=== PATIENT | male | born 1945 | race Caucasian/White ===

== ENCOUNTER → 2017-05-30 | Outpatient (CLI) | payer BC ==
[~2017-05-30] MED LIST: AMLO5 PO; CHOL10002 PO; CODACE30 PO; DOCU100 PO; Ecotrin325 MG PO; GABA300 PO; GABA600 PO; HYDSUL200 PO; Hydroxychloroq200 MG PO; IBUP800 PO; METO25ER PO; METO50ER PO; MUPI2TC TOP; OXYC10TA19 PO; OXYC5 PO; SULF500A PO; TAMS.4ER PO; TRIHYD253A PO; TYLENOL WITH CODEINE PO; Triamterene W/1 EACH PO; VALS80 PO; WARF4 PO
== END ==
LOC: LAB 11:21
DX: R97.20 Elevated prostate specific antigen [PSA] (principal)
CPT/HCPCS: 87070; 87077; 87186

== ENCOUNTER → 2017-06-27 | Outpatient (CLI) | payer BC | END | disposition home or self-care (01) | LOC: PLD 07:36 | DX: C61 Malignant neoplasm of prostate (principal) | CPT/HCPCS: 88305; 88341; 88342 ==

== ENCOUNTER 2017-11-09 14:30 | Inpatient (IN) | payer MEDICARE, BC ==
[~2017-11-09] VITALS: Ht 177.8 cm; Wt 112.9 kg
[~2017-11-09 14:30] MED LIST changes: -Ecotrin325 MG PO; -OXYC5 PO
[2017-11-15 04:31] LABS: BASOPHILS ABSOLUTE AUTO 0.04 K/mm3 (0.00-0.23); BASOPHILS PERCENT AUTO 0 % (0-2); EOSINOPHILS PERCENT AUTO 2 % (0-6); Hematocrit 32.6 % (37.0-53.0); Hemoglobin 10.7 g/dL (13.5-17.5); IMMATURE GRAN ABSOLUTE AUTO 0.05 K/mm3 (0.00-0.10); IMMATURE GRAN PERCENT AUTO 0 % (0-1); LYMPHOCYTES ABSOLUTE AUTO 1.63 K/mm3 (0.84-5.20); LYMPHOCYTES PERCENT AUTO 14 % (21-46); MONOCYTES ABSOLUTE AUTO 1.26 K/mm3 (0.16-1.47); MONOCYTES PERCENT AUTO 11 % (4-13); Mean Corpuscular HGB 30.6 pg (26.0-34.0); Mean Corpuscular HGB Conc 32.8 g/dL (31.5-36.5); Mean Corpuscular Volume 93 fL (80-100); Mean Platelet Volume 10.8 fL (9.1-12.4); NEUTROPHILS ABSOLUTE AUTO 8.34 K/mm3 (1.96-9.15); NEUTROPHILS PERCENT AUTO 73 % (41-73); Platelet Count 254 K/mm3 (150-400); RDW Coefficient Variation 13.4 % (11.7-14.2); White Blood Cell Count 11.52 K/mm3 (4.00-11.30)
[2017-11-15 04:58] LABS: Anion Gap 8 mmol/L (6-16); Blood Urea Nitrogen 14 mg/dL (8-24); Bun/Creatinine Ratio 16.6 (12.0-20.0); CO2, Blood 29 mmol/L (21-32); Calcium, Blood 8.6 mg/dL (8.5-10.1); Chloride, Blood 104 mmol/L (98-108); Creatinine, Blood 0.84 mg/dL (0.60-1.20); Glomerular Filtration Rate >60 (60-); Glucose, Blood 131 mg/dL (70-99); Potassium, Blood 3.4 mmol/L (3.5-5.5); Sodium, Blood 141 mmol/L (136-145)
[2017-11-15] MEDS ORDERED: OXYC5 PO (13:37)
[2017-11-15] MEDS ORDERED: Ecotrin325 MG PO (13:39)
== END 2017-11-15 15:45 | disposition home or self-care (01) | DRG 470 ==
LOC: SURS 11-14 12:03 → PRE IP 11-14 13:30 → SURS 11-14 18:38
PROVIDERS: Orthopaedic Surgery
PROC: 0SRB0JA Replacement of Left Hip Joint with Synthetic Substitute, Uncemented, Open Approach (ICD-10-PCS; principal; 2017-11-14 13:30)
DX: M16.12 Unilateral primary osteoarthritis, left hip (principal); I10 Essential (primary) hypertension; E78.5 Hyperlipidemia, unspecified; M06.9 Rheumatoid arthritis, unspecified; Z79.899 Other long term (current) drug therapy; Z98.1 Arthrodesis status; Z85.038 Personal history of other malignant neoplasm of large intestine; Z90.49 Acquired absence of other specified parts of digestive tract; Z87.891 Personal history of nicotine dependence; Z88.5 Allergy status to narcotic agent
CPT/HCPCS: 36415; 72170; 80048; 82947; 85025; 86850; 86900; 86901; 87081; 88300; 97110; 97116; 97161; 97530; C1713; C1776; G8978; G8979; J0171; J0690; J0735; J1885; J2250; J2370; J2795; J3010; J7120

== ENCOUNTER 2019-01-14 07:49 | Day surgery (SDC) | payer BC ==
[~2019-01-14] VITALS: Ht 180.3 cm; Wt 107.9 kg
[~2019-01-14 07:49] MED LIST changes: +Ecotrin325 MG PO; +OXYC5 PO
[2019-01-14 08:52] LABS: IMMATURE RETIC FRACTION 8.3 % (2.3-16.0); RETIC HGB EQUIVALENT 36.3 pg (28.20-36.60); RETICULOCYTE ABSOLUTE 0.0572 M/mm3 (0.0200-0.1100); RETICULOCYTE COUNT PERCENT 1.41 % (0.50-2.50)
[2019-01-14 09:12] LABS: Percent Saturation 28.3 % (20.0-50.0)
[2019-01-14 09:15] LABS: Free Thyroxine 0.92 ng/dL (0.70-1.60)
== END 2019-01-14 09:59 | disposition home or self-care (01) ==
LOC: ORSCSDS 07:49
PROVIDERS: Internal Medicine Gastroenterology
PROC: 0DBP8ZX Excision of Rectum, Via Natural or Artificial Opening Endoscopic, Diagnostic (ICD-10-PCS; principal; 2019-01-14 09:00)
PROC: 0DBE8ZX Excision of Large Intestine, Via Natural or Artificial Opening Endoscopic, Diagnostic (ICD-10-PCS; principal; 2019-01-14 09:00)
DX: Z12.11 Encounter for screening for malignant neoplasm of colon (principal); Z85.038 Personal history of other malignant neoplasm of large intestine; D12.8 Benign neoplasm of rectum; K57.30 Diverticulosis of large intestine without perforation or abscess without bleeding; I10 Essential (primary) hypertension; E78.5 Hyperlipidemia, unspecified; Z79.899 Other long term (current) drug therapy
CPT/HCPCS: 82607; 82728; 82746; 83516; 83540; 83550; 84439; 85045; 86255; 88305; J2704; J7120

== ENCOUNTER → 2020-04-10 | Outpatient (CLI) | payer BC ==
[2020-04-10 15:20] LABS: Microalbumin, Urine Quant. 14.4 mg/L (0.000-20.000); Protein, Urine Quantitative 12.4 mg/dL (0.0-11.9)
== END | disposition home or self-care (01) ==
LOC: LAB SHORT 05:00 → LAB 05:00 → LAB FUT 04-08 10:50
PROVIDERS: Internal Medicine Nephrology
DX: N18.30 Chronic kidney disease, stage 3 unspecified (principal); D63.1 Anemia in chronic kidney disease; N25.81 Secondary hyperparathyroidism of renal origin; E55.9 Vitamin D deficiency, unspecified; E78.00 Pure hypercholesterolemia, unspecified; R76.9 Abnormal immunological finding in serum, unspecified; R94.5 Abnormal results of liver function studies; R94.6 Abnormal results of thyroid function studies
CPT/HCPCS: 81050; 82043; 82570; 84156

== ENCOUNTER 2021-05-03 04:26 | Day surgery (SDC) | payer BC ==
[~2021-05-03] VITALS: Ht 180.3 cm; Wt 111.1 kg
[2021-05-03] MEDS ORDERED: LOSARTAN POTAS100 M1 PO (15:18)
[2021-05-03] MEDS ORDERED: Crestor40 MG PO (15:18)
[2021-05-03] MEDS ORDERED: BANOPHEN50 M1 PO (15:19)
[2021-05-03] MEDS ORDERED: THERA-D2000 UNIT PO (15:20)
[2021-05-03] MEDS ORDERED: POTASSIUM GLUCO99 M1 PO (15:20)
== END 2021-05-03 11:20 | disposition home or self-care (01) ==
LOC: ATC 04:26
DX: R97.20 Elevated prostate specific antigen [PSA] (principal); Z88.5 Allergy status to narcotic agent; Z87.891 Personal history of nicotine dependence; Z80.42 Family history of malignant neoplasm of prostate
CPT/HCPCS: 96365; J1580

== ENCOUNTER → 2021-07-22 | Outpatient (CLI) | payer BC ==
[~2021-07-22] MED LIST changes: +BANOPHEN50 M1 PO; +Crestor40 MG PO; +LOSARTAN POTAS100 M1 PO; +POTASSIUM GLUCO99 M1 PO; +THERA-D2000 UNIT PO
[2021-07-31 13:11] LABS: 6-ACETYLMORPHINE Not Detected (.)
== END | disposition home or self-care (01) ==
LOC: LAB 10:30 → LAB SHORT 10:30
PROVIDERS: Family Medicine
DX: Z51.81 Encounter for therapeutic drug level monitoring (principal); Z79.899 Other long term (current) drug therapy
CPT/HCPCS: G0480

== ENCOUNTER 2023-06-11 14:41 | Emergency (ER) | payer OTHER ==
[~2023-06-11] VITALS: Ht 182.9 cm; Wt 111.1 kg
[2023-06-11 15:28] LABS: BASOPHILS ABSOLUTE AUTO 0.09 K/mm3 (0.00-0.23); BASOPHILS PERCENT AUTO 1 % (0-2); EOSINOPHILS ABSOLUTE AUTO 0.43 K/mm3 (0.00-0.68); EOSINOPHILS PERCENT AUTO 4 % (0-6); Hematocrit 41.8 % (37.0-53.0); Hemoglobin 13.8 g/dL (13.5-17.5); IMMATURE GRAN ABSOLUTE AUTO 0.04 K/mm3 (0.00-0.10); IMMATURE GRAN PERCENT AUTO 0 % (0-1); LYMPHOCYTES ABSOLUTE AUTO 2.83 K/mm3 (0.84-5.20); LYMPHOCYTES PERCENT AUTO 28 % (21-46); MONOCYTES PERCENT AUTO 10 % (4-13); Mean Corpuscular HGB 31.2 pg (26.0-34.0); Mean Corpuscular Volume 94 fL (80-100); NEUTROPHILS ABSOLUTE AUTO 5.74 K/mm3 (1.96-9.15); NEUTROPHILS PERCENT AUTO 57 % (41-73); Platelet Count 271 K/mm3 (150-400); RDW Coefficient Variation 13.5 % (11.7-14.2); RDW Standard Deviation 46.9 fL (35.1-46.3); Red Blood Cell Count 4.43 M/mm3 (4.30-5.90); White Blood Cell Count 10.13 K/mm3 (4.00-11.30)
[2023-06-11 15:48] LABS: Albumin, Blood 3.7 g/dL (3.4-5.0); Bilirubin, Total 0.2 mg/dL (0.1-1.0); Bun/Creatinine Ratio 18.8 (12.0-20.0); Calcium, Blood 9.4 mg/dL (8.5-10.1); Creatinine, Blood 1.17 mg/dL (0.60-1.20); Globulin, Blood 3.6 g/dL (2.2-4.0); Potassium, Blood 3.8 mmol/L (3.5-5.5); Total Protein, Blood 7.3 g/dL (6.4-8.2)
[2023-06-11 17:30] VITALS: BP 190/100
[2023-06-11] MEDS ORDERED: Toprol Xl50 MG PO (17:41)
== END 2023-06-11 18:16 | disposition home or self-care (01) ==
LOC: ER 14:41
PROVIDERS: Student in an Organized Health Care Education/Training Program
DX: I10 Essential (primary) hypertension (principal); G47.00 Insomnia, unspecified; J44.9 Chronic obstructive pulmonary disease, unspecified; Z88.5 Allergy status to narcotic agent; Z79.899 Other long term (current) drug therapy; Z87.891 Personal history of nicotine dependence
CPT/HCPCS: 71046; 80053; 84484; 85025; 93005; 93010; 96374; 99284-25

== ENCOUNTER 2023-09-27 10:51 | Day surgery (SDC) | payer OTHER ==
[2023-09-27] VITALS (13 sets, daily range): BP systolic 112–164; BP diastolic 75–90
[~2023-09-27] VITALS: Ht 182.9 cm; Wt 107.9 kg
[~2023-09-27 10:51] MED LIST changes: +KLOR-CON 1010 ME9 PO; -POTASSIUM GLUCO99 M1 PO; +Toprol Xl50 MG PO
[2023-09-27] MEDS ORDERED: Acetaminophen 500 MG Tab PO SCH ×2 (10:55→16:00)
[2023-09-27] MEDS ORDERED: OxyCODONE HCL 10 MG TABCR PO SCH (10:55)
[2023-09-27] MEDS ORDERED: CeFAZolin Sodium 2,000 MG in NS 100 ML IV SCH ×2 (10:55→21:30)
[2023-09-27] MEDS ORDERED: Vancomycin HCL 1,000 MG in NS 100 ML IV SCH (10:55)
[2023-09-27] MEDS ORDERED: Lactated Ringer's 1,000 ML IV SCH ×2 (10:55→12:55)
[2023-09-27] MEDS ORDERED: Chlorhexidine Mouth Care 15 ML UDC MT SCH (10:55)
[2023-09-27] MEDS ORDERED: Ropivacaine 0.5% HCl/Pf 123.125 MG,EPINEPHrine HCL 0.25 MG,Ketorolac Tromethamine 15 MG... INFIL SCH (10:55)
[2023-09-27] MEDS ORDERED: Tranexamic Acid 100 ML IV SCH (10:59)
[2023-09-27] MEDS ORDERED: EpiNEPhrine 1 MG/1 ML 1ML Vial ONE ×2 (11:18→13:48)
[2023-09-27] MEDS ORDERED: Midazolam HCl 1MG / ML 2ML Vial ONE (11:19)
[2023-09-27] MEDS ORDERED: propofoL 20 ML IV ONE (11:19)
[2023-09-27] MEDS ORDERED: Dexamethasone Sod Phos 10 MG/ML 1ML VIAL ONE (11:19)
[2023-09-27] MEDS ORDERED: Ondansetron HCl 2 MG / ML 2ML Vial ONE (11:19)
[2023-09-27] MEDS ORDERED: Ketorolac Tromethamine 30mg Vial ONE (11:19)
[2023-09-27] MEDS ORDERED: ePHEDrine Sulfate 50 MG/ML 1ML Injection ONE ×2 (11:26→13:47)
[2023-09-27] MEDS ORDERED: ELIQUIS5 M2 PO (11:46)
--- NOTE | 2023-09-27 12:28 | NUR ---
Ambulatory in Day SurgeryPre-Op teaching done. Pt verbalizes understanding. History, Chart, Medications and Allergies reviewed before start of procedure.Patient confirms NPO status and agrees with scheduled surgery.
[2023-09-27] MEDS ORDERED: DiphenhydrAMINE HCL 25 MG Cap PO PRN (12:45)
[2023-09-27] MEDS ORDERED: Bisacodyl 10 MG Supp PR PRN (12:50)
[2023-09-27] MEDS ORDERED: OxyCODONE HCL 5 MG TAB PO PRN ×2 (12:50→12:55)
[2023-09-27] MEDS ORDERED: HYDROmorphone HCl/Pf 1MG SYR IV PRN (12:50)
[2023-09-27] MEDS ORDERED: Magnesium Hydroxide Conc 10 ML UDC PO PRN (12:55)
[2023-09-27] MEDS ORDERED: Metoclopramide HCl 5MG / ML 2ML Vial IV PRN (12:55)
[2023-09-27] MEDS ORDERED: Ondansetron HCl 2 MG / ML 2ML Vial IV PRN (12:55)
[2023-09-27] MEDS ORDERED: Promethazine HCl 25 MG Tab PO PRN (12:55)
[2023-09-27] MEDS ORDERED: Bupivacaine 0.5% HCl 5 MG/ML 30MLVIAL ONE (13:10)
[2023-09-27] MEDS ORDERED: Vancomycin HCl 1000 MG ADDvantage ONE (13:17)
[2023-09-27] MEDS ORDERED: Atropine Sulfate 0.4 MG/1 ML Vial ONE (13:58)
[2023-09-27] MEDS ORDERED: Lidocaine HCl 2% 20 ML MDV ONE (14:22)
[2023-09-27] MEDS ORDERED: Ketorolac Tromethamine 15mg Vial IV SCH (18:00)
--- NOTE | 2023-09-27 18:39 | NUR ---
SHIFT SUMMARY S/P R TKA, SURGICAL DRESSING/KARUNA CDI/SPINAL/WIGGLES TOES, TEDS/SCDS/POLAR MOE ON. A&OX4, VSS/1LNC, CROW PO, DENIES PAIN, HAS NOT BEEN OOB, AWAITING POSTOP VOID, IVF/ABX PER EMAR. WILL REPORT TO ONCOMING NOC TISHA.
[2023-09-27] MEDS ORDERED: Tamsulosin HCl 0.4 MG Cap PO SCH (21:00)
[2023-09-27] MEDS ORDERED: Gabapentin 300 MG Cap PO SCH (21:00)
[2023-09-27] MEDS ORDERED: SulfASALazine 500 MG Tab PO SCH (21:00)
[2023-09-27] MEDS ORDERED: Docusate Sodium 100 MG Cap PO SCH (21:00)
--- NOTE | 2023-09-28 00:11 | NUR ---
URINE OUTPUT PT VOIDED 25ML AT 2330. PT HAD A PREVIOUS BLADDER SCAN OF 420. PT HAS TOLD THIS RN ABOUT PREVIOUS TRAUMA WITH HAVING A CATHETER. REFUSING TO HAVE ANY KIND OF STRAIGHT CATH DONE. WILL REASSESS BLADDER T/O NIGHT
[2023-09-28] MEDS ORDERED: Vancomycin HCL 1,000 MG in NS 100 ML IV ONE (00:30)
[2023-09-28 02:29] VITALS: BP 146/73
[2023-09-28 05:35] LABS: BASOPHILS ABSOLUTE AUTO 0.01 K/mm3 (0.00-0.23); BASOPHILS PERCENT AUTO 0 % (0-2); EOSINOPHILS PERCENT AUTO 0 % (0-6); Hematocrit 35.4 % (37.0-53.0); Hemoglobin 11.8 g/dL (13.5-17.5); IMMATURE GRAN ABSOLUTE AUTO 0.11 K/mm3 (0.00-0.10); IMMATURE GRAN PERCENT AUTO 1 % (0-1); LYMPHOCYTES ABSOLUTE AUTO 1.07 K/mm3 (0.84-5.20); LYMPHOCYTES PERCENT AUTO 6 % (21-46); MONOCYTES ABSOLUTE AUTO 1.58 K/mm3 (0.16-1.47); MONOCYTES PERCENT AUTO 9 % (4-13); Mean Corpuscular HGB Conc 33.3 g/dL (31.5-36.5); Mean Corpuscular Volume 96 fL (80-100); Mean Platelet Volume 10.5 fL (9.1-12.4); NEUTROPHILS ABSOLUTE AUTO 14.88 K/mm3 (1.96-9.15); NEUTROPHILS PERCENT AUTO 84 % (41-73); Platelet Count 259 K/mm3 (150-400); RDW Coefficient Variation 13.4 % (11.7-14.2); RDW Standard Deviation 47.1 fL (35.1-46.3); Red Blood Cell Count 3.69 M/mm3 (4.30-5.90); White Blood Cell Count 17.65 K/mm3 (4.00-11.30)
[2023-09-28 06:07] LABS: Bun/Creatinine Ratio 19.4 (12.0-20.0); Calcium, Blood 9.1 mg/dL (8.5-10.1); Creatinine, Blood 1.34 mg/dL (0.60-1.20); Magnesium, Blood 1.9 mg/dL (1.6-2.4); Potassium, Blood 3.9 mmol/L (3.5-5.5)
[2023-09-28 07:03] VITALS: BP 140/65
--- NOTE | 2023-09-28 07:22 | NUR ---
SHIFT SUMMARY POD 1 R TKA PT RESTED IN BED DURING THE NIGHT. PAIN MANAGED PER EMAR. PT AMB TO THE BR, VOIDING LITTLE AMOUNTS. PT REPORTS NOT TAKING FLOMAX MEDICATION FOR A WEEK BEFORE PROCEDURE. PT TOLERATING PO INTAKE. DRESSING TO KNEE C/D/I. VSS. PLAN TO WORK WITH THERAPY THEN D/C HOME. NO OTHER CONCERNS AT THIS TIME, CALL LIGHT WITHIN REACH
[2023-09-28] MEDS ORDERED: Trimethoprim/Sulfamethoxazole DS Tab PO SCH (09:00)
[2023-09-28] MEDS ORDERED: Aspirin 81 MG Chew PO SCH (09:00)
[2023-09-28] MEDS ORDERED: Hydroxychloroquine Sulfate 200 MG Tab PO SCH (09:00)
[2023-09-28] MEDS ORDERED: Potassium Chloride 10 Meq Tablet SA PO SCH (09:00)
[2023-09-28] MEDS ORDERED: Triamter/HCthiazide 37.5/25 MG 1 Tab PO SCH (09:00)
[2023-09-28] MEDS ORDERED: Cholecalciferol 1000 Unit Tablet (=25MCG) PO SCH (09:00)
[2023-09-28] MEDS ORDERED: AmLODIPine Besylate 5 MG Tab PO SCH (09:00)
[2023-09-28] MEDS ORDERED: Rosuvastatin Calcium 10 MG Tab PO SCH (09:00)
[2023-09-28] MEDS ORDERED: Metoprolol Succinate 50 MG TABCR PO SCH (09:00)
[2023-09-28] MEDS ORDERED: Losartan Potassium 50 MG Tab PO SCH (09:00)
[2023-09-28] MEDS ORDERED: OXYC5 PO (10:23)
[2023-09-28] MEDS ORDERED: SULTRIDS PO (10:24)
[2023-09-28] MEDS ORDERED: PROM12.5S PR (10:28)
--- NOTE | 2023-09-28 12:18 | NUR ---
URINARY RETENTION PT IS CONTINUING TO HAVE URINARY RETENTION. PT IS RETAINING 350-400ML AFTER VOIDS OF 100-275ML. PT DECLINED STRAIGHT CATHETER, STATING HE PREVIOUSLY HAD A BAD EXPERIENCE. DR. JOLLY NOTIFIED. FLOMAX WAS RESTARTED LAST NIGHT. PT PROVIDED EDUCATION ABOUT URINARY RETENTION. WHILE ATTEMPTING TO PROVIDE EDUCATION PT IS AVOIDANT AND TURNS AWAY FROM STAFF. PT EXPRESSED FRUSTRATION REGARDING THE SITUATION. PT PROVIDED EDUCATION REGARDING RISKS OF URINARY RETENTION AND HIS RIGHTS THE PATIENT.
[2023-09-28 13:23] VITALS: BP 129/64
--- NOTE | 2023-09-28 14:40 | NUR ---
DC INSTRUCTIONS GIVEN TO PT AND , VERBALIZED UNDERSTANDING, IV DC'D, CATH INTACT.
--- NOTE | 2023-09-28 14:52 | NUR ---
DISCHARGE MATT GILES PROVIDED WRITTEN AND VERBAL DISCHARGE INSTRUCTIONS TO PT. PT ABLE TO VOID PRIOR TO DISCHARGE, POST VOID WAS 240ML. PT WAS PROVIDED WITH EDUCATION REGARDING URINARY RETENTION. PT ENCOURAGED TO FOLLOW-UP WITH HIS PCP WITHIN 1 WEEK. VSS. PT CLEARED THERAPY, TOLERATING PO, PAIN MANAGED. PT ASSISTED OUT IN W/C AT 1451. PER MATT GILES PT WAS PROVIDED WITH CLEAN DRESSINGS FOR DRESSING CHANGES.
[2023-09-28] MEDS ORDERED: Apixaban 5 MG Tab PO SCH (17:00)
== END 2023-09-28 14:52 | disposition home or self-care (01) ==
LOC: ORSCMMR 10:51 → ORD 14:00 → ORSCMMR 14:00 → SURS 16:45 → ORSCMMR 09-28 14:52
PROVIDERS: Orthopaedic Surgery
PROC: 0SRC0J9 Replacement of Right Knee Joint with Synthetic Substitute, Cemented, Open Approach (ICD-10-PCS; principal; 2023-09-27 14:00)
DX: M17.11 Unilateral primary osteoarthritis, right knee (principal); Z96.652 Presence of left artificial knee joint; I48.91 Unspecified atrial fibrillation; Z79.01 Long term (current) use of anticoagulants; Z85.46 Personal history of malignant neoplasm of prostate; Z79.899 Other long term (current) drug therapy; Z68.34 Body mass index [BMI] 34.0-34.9, adult; Z96.642 Presence of left artificial hip joint; Z87.891 Personal history of nicotine dependence
CPT/HCPCS: 36415; 73560-RT; 80048; 83735; 85025; 97110; 97116; 97162; A9270; C1713; C1776; J0171; J0461; J0690; J0735; J1100; J1885; J2250; J2405; J2704; J2795; J3370; J7120

== ENCOUNTER 2024-09-09 06:11 | Day surgery (SDC) | payer OTHER ==
[~2024-09-09] VITALS: Ht 182.9 cm; Wt 107.5 kg
[~2024-09-09 06:11] MED LIST changes: +Acetaminophen 500 MG Tab ONE; +ELIQUIS5 M2 PO; +Lactated Ringer's 1,000 ML IV ONE; +OxyCODONE HCL 10 MG TABCR ONE; +PROM12.5S PR; +SULTRIDS PO
[2024-09-09] MEDS ORDERED: Vancomycin HCL 1,000 MG in NS 250 ML IV SCH (06:35)
[2024-09-09] MEDS ORDERED: CefTRIAXone Sodium 2,000 MG in NS 100 ML IV SCH (06:35)
[2024-09-09] MEDS ORDERED: CODACE30 (06:42)
[2024-09-09] MEDS ORDERED: Dexmedetomidine HCL 200 MCG / 2 ML ONE (06:47)
[2024-09-09] MEDS ORDERED: Bupivacaine 0.5% W/EPI 1:200000 SDV 30 ML Vial ONE (06:50)
[2024-09-09] MEDS ORDERED: Sugammadex Sodium 200 MG/2ML SDV (100 MG/ML) ONE (06:52)
[2024-09-09] MEDS ORDERED: propofoL 20 ML IV ONE (06:52)
[2024-09-09] MEDS ORDERED: Midazolam HCl 1MG / ML 2ML Vial ONE (06:52)
[2024-09-09] MEDS ORDERED: FentaNYL Citrate 50 MCG/ML 2 ML Injection ONE (06:52)
[2024-09-09] MEDS ORDERED: Ondansetron HCl 2 MG / ML 2ML Vial ONE (06:53)
[2024-09-09] MEDS ORDERED: Rocuronium Bromide 10 MG/ML 5ML Injection IV ONE ×2 (06:53→08:03)
[2024-09-09] MEDS ORDERED: Bupivacaine 0.5% HCl 5 MG/ML 30MLVIAL ONE (06:53)
[2024-09-09] MEDS ORDERED: Lidocaine 2%-Epineph 1:200000 20 ML SDV ONE (06:53)
[2024-09-09] MEDS ORDERED: Dexamethasone Sod Phos 10 MG/ML 1ML VIAL ONE (06:53)
[2024-09-09] MEDS ORDERED: Lactated Ringer's 1,000 ML IV ONE (07:03)
--- NOTE | 2024-09-09 07:04 | NUR ---
09/09/24 0704 ELSIABET SILVA VANCOMYACIN 1,000MG IV STARTED IN PREOP 714
[2024-09-09] MEDS ORDERED: NS 1,000 ML IV ONE (07:30)
[2024-09-09] MEDS ORDERED: Tranexamic Acid 100 ML IV ONE ×2 (07:32→10:21)
[2024-09-09] MEDS ORDERED: Phenylephrine HCl 100 MCG/ML-NS 10MLSYR (1MG/10ML) ONE (07:45)
[2024-09-09] MEDS ORDERED: ePHEDrine Sulfate 50 MG/ML 1ML Injection ONE (07:45)
--- NOTE | 2024-09-09 08:27 | NUR ---
09/09/24 0827 Madelyn Pearce TXA GIVEN AT 0743, ROCHEPHIN GIVEN AT 0732, VANCO STARTED AT 0726. BLOCK PLACED IN PREOP PRIOR TO PATIENT ARRIVING IN OR.
[2024-09-09 12:47] VITALS: BP 100/84
--- NOTE | 2024-09-09 12:49 | NUR ---
09/09/24 1249 Addie Neves PT. VERBALIZES READY TO TO HOME. PT. DENIES PAIN. PT. USING HIS IS IN HIS ROOM & DRINKING ROOTBEER.
== END 2024-09-09 13:30 | disposition home or self-care (01) ==
LOC: ORSCSDS 06:11
PROVIDERS: Orthopaedic Surgery
PROC: 0RRK00Z Replacement of Left Shoulder Joint with Reverse Ball and Socket Synthetic Substitute, Open Approach (ICD-10-PCS; principal; 2024-09-09 07:30)
DX: M19.012 Primary osteoarthritis, left shoulder (principal); I48.91 Unspecified atrial fibrillation; Z79.01 Long term (current) use of anticoagulants; E66.9 Obesity, unspecified; Z68.32 Body mass index [BMI] 32.0-32.9, adult; Z79.899 Other long term (current) drug therapy; Z85.46 Personal history of malignant neoplasm of prostate
CPT/HCPCS: 73030; A9270; C1713; C1776; J0696; J1100; J2250; J2371; J2405; J2704; J3010; J3370; J7030; J7050; J7120